=== PATIENT | female | born 1970 | race Caucasian/White ===

== ENCOUNTER 2018-05-11 17:13 | Emergency (ER) | payer MEDICARE, MEDICAID ==
[2018-05-11] MEDS ORDERED: ASPIRIN 81 MG TABLET, CHEWABLE PO ONE (17:25)
[2018-05-11 17:26] VITALS: BP 131/88
--- NOTE | 2018-05-11 17:26 | ER Document Report ---
ED Medical Screen (RME) - General Chief Complaint: Chest Pain Stated Complaint: CHEST PAIN Time Seen by Provider: 05/11/18 17:22 Primary Care Provider: BETZY CEDILLO MD [Primary Care Provider] - Follow up as needed Mode of Arrival: Ambulatory Information source: Patient Notes: C/O CP MIDSTERNAL, FEELS LIKE SL[place]GEHAMMER WITH C/O KHALIL THROBBING, WITH C/O RIGHT SIDE NECK PAIN. HX BIPOLAR. C/O NAUSEA, DENIES CAD. I have greeted and performed a rapid initial assessment of this patient. A comprehensive ED assessment and evaluation of the patient, analysis of test r esults and completion of the medical decision making process will be conducted by additional ED providers. TRAVEL OUTSIDE OF THE [place] IN LAST 30 DAYS: No - Related Data Allergies/Adverse Reactions: diphenhydramine [From Benadryl] Allergy (Verified 05/11/18 17:16) NSAIDS (Non-Steroidal Anti-Inflamma [Nsaids] Adverse Reaction (Verified 04/07/15 15:54) Past Medical History Neurological Medical History: Reports: Hx Migraine Psychiatric Medical History: Reports: Hx Bipolar Disorder Past Surgical History: Reports: Hx Genitourinary Surgery, Hx Hysterectomy, Hx Urinary Tract Surgery Physical Exam - Vital signs Vitals: Temp Pulse Resp BP Pulse Ox 97.9 F 96 22 H 131/88 H 99 05/11/18 17:24 05/11/18 17:24 05/11/18 17:24 05/11/18 17:24 05/11/18 17:24 Course - Vital Signs Vital signs: Temp Pulse Resp BP Pulse Ox 97.9 F 96 22 H 131/88 H 99 05/11/18 17:24 05/11/18 17:24 05/11/18 17:24 05/11/18 17:24 05/11/18 17:24 Doctor's Discharge - Discharge Referrals: BETZY CEDILLO MD [Primary Care Provider] - Follow up as needed
--- NOTE | 2018-05-11 18:03 | RADIOLOGY REPORT (SQ) ---
EXAM DESCRIPTION: CHEST 2 VIEWS COMPLETED DATE/TIME: 05/11/2018 5:35 pm REASON FOR STUDY: CHEST PAIN COMPARISON: None. EXAM PARAMETERS: NUMBER OF VIEWS: two views TECHNIQUE: Digital Frontal and Lateral radiographic views of the chest acquired. RADIATION DOSE: NA LIMITATIONS: none FINDINGS: LUNGS AND PLEURA: No opacities, masses or pneumothorax. No pleural effusion. MEDIASTINUM AND HILAR STRUCTURES: No masses or contour abnormalities. HEART AND VASCULAR STRUCTURES: Heart normal size. No evidence for failure. BONES: No acute findings. HARDWARE: None in the chest. OTHER: No other significant finding. IMPRESSION: NO ACUTE RADIOGRAPHIC FINDING IN THE CHEST. TECHNICAL DOCUMENTATION: JOB ID: [id number] [employer]- All Rights Reserved Reading location - IP/workstation name: [email or web address]
--- NOTE | 2018-05-11 21:24 | EKG REPORT ---
SEVERITY:- BORDERLINE ECG - SINUS RHYTHM PROBABLE LEFT ATRIAL ABNORMALITY BORDERLINE T ABNORMALITIES, ANTERIOR LEADS : Confirmed by: Luli Kim MD 11-May-2018 21:23:59
== END 2018-05-11 19:40 | disposition left against medical advice (07) ==
LOC: ER 17:13
DX: R07.9 Chest pain, unspecified (principal); R51 Headache; M54.2 Cervicalgia; Z90.710 Acquired absence of both cervix and uterus
CPT/HCPCS: 71046; 93005; 93010; 99281